=== PATIENT | female | born 1995 | race Caucasian/White ===

== ENCOUNTER 2017-12-14 23:52 | Emergency (ER) | payer SELFPAY ==
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
[2017-12-15 04:45] VITALS: BP 141/94
== END 2017-12-15 00:11 ==
LOC: VM.ED 23:52
DX: S40.212A Abrasion of left shoulder, initial encounter (principal); S90.511A Abrasion, right ankle, initial encounter; F10.129 Alcohol abuse with intoxication, unspecified; V27.4XXA Motorcycle driver injured in collision with fixed or stationary object in traffic accident, initial encounter
CPT/HCPCS: 99283-GF; 99284

== ENCOUNTER 2018-02-06 17:55 | Emergency (ER) | payer SELFPAY ==
[2018-02-06 18:23] VITALS: BP 130/74
[2018-02-06] MEDS ORDERED: Haloperidol Lactate 5 MG/ML SDV IM ONE (18:35)
--- NOTE | 2018-02-06 19:07 | EDM.PDOC ---
ED HPI GENERAL MEDICAL PROBLEM - General Chief Complaint: Behavioral/Psych Stated Complaint: drug induced psychosis Time Seen by Provider: 02/06/18 18:23 Source of Information: Reports: Police History Limitations: Reports: Altered Mental Status - History of Present Illness INITIAL COMMENTS - FREE TEXT/NARRATIVE: Patient's mother called for a welfare check on patient. PD found her wandering in the streets in traffic. They did arrest her and brought her here for evaluation. Meth paraphernalia found in her purse. She is verbally abusive, combative and non cooperative. Verbalizations are non connected and nonsense. Onset: Sudden - Related Data Allergies Allergy/AdvReac Type Severity Reaction Status Date / Time No Known Allergies Allergy Verified 12/15/17 04:36 Home Meds: Home Meds . [No Known Home Meds] 12/01/15 [History] Past Medical History - Past Health History Medical/Surgical History: Denies Medical/Surgical History Social & Family History - Family History Psychiatric: Reports: Schizophrenia Other Psychiatric Family History: Brother has schizophrenia - Tobacco Use Smoking Status *Q: Unknown Ever Smoked ED ROS GENERAL - Review of Systems Review Of Systems: Unable To Obtain - Physical Exam Exam: Not Obtained Course - Vital Signs Last Recorded V/S: Last Vital Signs Temp 37.6 C 02/06/18 17:55 Pulse 138 H 02/06/18 17:55 Resp 20 02/06/18 17:55 BP 130/74 02/06/18 17:55 Pulse Ox 98 02/06/18 17:55 - Orders/Labs/Meds Meds: Medications Discontinued Medications Generic Name Dose Route Start Last Admin Trade Name Santa PRN Reason Stop Dose Admin Chlorpromazine HCl 50 mg 02/06/18 18:34 02/06/18 18:08 Thorazine IM 02/06/18 18:35 50 mg ONETIME ONE Administration Haloperidol Lactate 2.5 mg 02/06/18 18:35 02/06/18 18:49 Haldol IM 02/06/18 18:36 2.5 mg STAT ONE Administration - Re-Assessments/Exams Free Text/Narrative Re-Assessment/Exam: 02/06/18 19:06 50 mg of thorazine given, as well as 2.5 mg of haldol to try to calm her. These were very minimally effective and she is still combative, yelling, and uncooperative. Departure - Departure Time of Disposition: 19:04 Disposition: DC/Tfer to Psych Hosp/Unit 65 Condition: Fair Clinical Impression: Methamphetamine intoxication, Psychosis - Discharge Information *PRESCRIPTION DRUG MONITORING PROGRAM REVIEWED*: Not Applicable *COPY OF PRESCRIPTION DRUG MONITORING REPORT IN PATIENT STARR: Not Applicable Referrals: PCP,Unknown [Primary Care Provider] - ED Communication - Discussed Case With (1) Discussed Case With (1): Other ([facility] screener Erlinda was contacted and we were given the permission for emergency hold and transfer to the [facility] treatment.) - Problem List & Annotations (1) Acute psychosis SNOMED Code(s): 62636320, 92820601 Code(s): F23 - BRIEF PSYCHOTIC DISORDER Status: Acute Priority: High Current Visit: No Onset Date: ~06/05/17 (2) Methamphetamine intoxication SNOMED Code(s): 91693570571758950 Code(s): F15.929 - OTHER STIMULANT USE, UNSP WITH INTOXICATION, UNSPECIFIED Status: Acute Current Visit: Yes
== END 2018-02-06 19:05 ==
LOC: VM.ED 17:55
DX: F15.129 Other stimulant abuse with intoxication, unspecified (principal); F29 Unspecified psychosis not due to a substance or known physiological condition
CPT/HCPCS: 96372; 99283-GF; 99285; J1630; J3230

== ENCOUNTER 2019-07-10 03:05 | Emergency (ER) | payer MEDICAID, OTHER ==
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
[2019-07-10 03:58] VITALS: BP 131/88; PULSE 120
== END 2019-07-10 03:45 | disposition home or self-care (01) ==
LOC: VM.ED 03:05
DX: Z02.89 Encounter for other administrative examinations (principal)
CPT/HCPCS: 99283; 99283-GF

== ENCOUNTER 2019-10-17 11:18 | Emergency (ER) | payer MEDICAID ==
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
[2019-10-17] MEDS ORDERED: LORazepam 1 MG Tab PO ONE ×2 (12:18→12:57)
[2019-10-17 12:23] LABS: CHLORIDE,CL 99 mmol/L (98-107); SODIUM,NA 140 mmol/L (136-145)
[2019-10-17 12:28] LABS: ANION GAP 18.6 mmol/L (10-20)
[2019-10-17 12:36] LABS: ACETAMINOPHEN 0 ug/ml (10-30)
[2019-10-17 12:39] VITALS: BP 142/88; PULSE 147
== END 2019-10-17 13:00 ==
LOC: VM.ED 11:18
DX: F23 Brief psychotic disorder (principal)
CPT/HCPCS: 36415; 80053; 80307; 83735; 85025; 99283-GF; 99285-25; A9270-GY

== ENCOUNTER 2019-11-13 15:58 | Observation (INO) | payer SELFPAY ==
[2019-11-13] MEDS ORDERED: Ketorolac 30 MG/ML SDV IVPUSH ONE (17:19)
[2019-11-13] MEDS ORDERED: Sodium Chloride 0.9% 1,000 ML IV ONE (17:20)
--- NOTE | 2019-11-13 17:21 | EDM.PDOC ---
ED HPI GENERAL MEDICAL PROBLEM - General Chief Complaint: ENT Problem Stated Complaint: SOB Time Seen by Provider: 11/13/19 16:35 Source of Information: Reports: Patient History Limitations: Reports: No Limitations - History of Present Illness Duration: Day(s): Quality: Reports: Burning Severity: Moderate Associated Symptoms: Reports: Fever/Chills, Shortness of Breath. Denies: Confusion, Chest Pain, Cough, cough w sputum, Nausea/Vomiting Throat Pain Score (Numeric/FACES): 8 - Related Data Allergies Allergy/AdvReac Type Severity Reaction Status Date / Time No Known Allergies Allergy Verified 10/17/19 12:44 Home Meds: Home Meds . [No Known Home Meds] 12/01/15 [History] Past Medical History - Past Health History Medical/Surgical History: Denies Medical/Surgical History Psychiatric History: Reports: Addiction Other Psychiatric History: Meth use Social & Family History - Family History Psychiatric: Reports: Schizophrenia Other Psychiatric Family History: Brother has schizophrenia - Tobacco Use Smoking Status *Q: Current Every Day Smoker Years of Tobacco use: 2 Packs/Tins Daily: 0.2 - Recreational Drug Use Recreational Drug Use: No ED ROS ENT - Review of Systems Review Of Systems: See Below Constitutional: Reports: Fever. Denies: Chills, Malaise, Weakness, Fatigue HEENT: Reports: No Symptoms, Throat Pain, Throat Swelling Respiratory: Reports: No Symptoms Cardiovascular: Reports: No Symptoms Endocrine: Reports: No Symptoms GI/Abdominal: Reports: No Symptoms : Reports: No Symptoms Musculoskeletal: Reports: No Symptoms Skin: Reports: No Symptoms Neurological: Reports: No Symptoms Psychiatric: Reports: No Symptoms Hematologic/Lymphatic: Reports: No Symptoms Immunologic: Reports: No Symptoms ED EXAM, ENT - Physical Exam Exam: See Below Exam Limited By: No Limitations General Appearance: Alert, WD/WN, No Apparent Distress Eye Exam: Bilateral Eye: EOMI, PERRL Ears: Normal External Exam, Normal Canal, Hearing Grossly Normal Nose: Normal Inspection, Normal Mucousa, No Blood Mouth/Throat: Normal Gums, Normal Lips, Normal Teeth, Tonsillar Erythema, Tonsillar Exudates, Tonsillar Swelling, Uvular Edema, Other (Patient has huge bilateral cryptic tonsils with punched out ulcerations and whitish plaques she does have a patent airway and has normal phonation she is able to swallow her own saliva with no issues uvula is midline but edematous). No: Normal Inspection, Normal Oropharynx, Tongue Swelling, Trismus Head: Atraumatic, Normocephalic Neck: Normal Inspection, Supple, Non-Tender, Full Range of Motion. No: Limited Range of Motion, Lymphadenopathy (L), Lymphadenopathy (R) Respiratory/Chest: No Respiratory Distress, Lungs Clear, Normal Breath Sounds, No Accessory Muscle Use, Chest Non-Tender Cardiovascular: Normal Peripheral Pulses, Regular Rate, Rhythm GI/Abdominal: Normal Bowel Sounds, Soft, Non-Tender, No Organomegaly Extremities: Normal Inspection, Normal Range of Motion, Non-Tender Neurological: Alert, Oriented, CN II-XII Intact, Normal Cognition, Normal Gait, No Motor/Sensory Deficits Psychiatric: Normal Affect, Normal Mood Skin: Warm, Dry, Intact, Normal Color, No Rash Lymphatic: No Adenopathy Comments: Patient has negative trismus no signs or symptoms of Ludwigs angina Course - Vital Signs Text/Narrative:: Consulted with ear nose throat in [place] with Dr. Kirk advised to admit the patient hydrate give IV Unasyn and IV steroids titrate for pain control he is happy to consult if need be as outpatient or if needs to be transferred go to hospitalist service Spoke with Dr. Faiza Aleman she will accept the patient Last Recorded V/S: Last Vital Signs Temp 37.5 C 11/13/19 16:10 Pulse 126 H 11/13/19 16:10 Resp 16 11/13/19 16:10 BP 138/89 11/13/19 16:10 Pulse Ox 98 11/13/19 16:10 - Orders/Labs/Meds Orders: Active Orders 24 hr Category Date Time Status CBC WITH AUTO DIFF [HEME] Stat Lab 11/13/19 16:59 Ordered CULTURE THROAT [RM] Stat Lab 11/13/19 16:59 Ordered STREP SCRN A RAPID W CULT CONF [RM] Urgent Lab 11/13/19 16:07 Results Labs: Laboratory Tests 11/13/19 Range/Units 16:07 SARS-CoV-2 RNA (RT-PCR) Negative (NEGATIVE) Departure - Departure Time of Disposition: 17:25 Disposition: Refer to Observation Condition: Good Clinical Impression: Pharyngitis, Acute gangrenous tonsillitis - Discharge Information Sepsis Event Note - Evaluation Sepsis Screening Result: Possible Sepsis Risk - Focused Exam Vital Signs: Vital Signs Temp Pulse Resp BP Pulse Ox 11/13/19 16:10 37.5 C 126 H 16 138/89 98 Date Exam was Performed: 11/13/19 Time Exam was Performed: 17:16 - Problem List & Annotations (1) Acute gangrenous tonsillitis SNOMED Code(s): 515599626 Code(s): J03.90 - ACUTE TONSILLITIS, UNSPECIFIED Status: Acute Current Visit: Yes (2) Pharyngitis SNOMED Code(s): 430401312 Code(s): J02.9 - ACUTE PHARYNGITIS, UNSPECIFIED Status: Acute Current Visit: Yes - My Orders Last 24 Hours: My Active Orders 11/13/19 16:07 STREP SCRN A RAPID W CULT CONF [RM] Urgent 11/13/19 16:59 CBC WITH AUTO DIFF [HEME] Stat CULTURE THROAT [RM] Stat - Assessment/Plan Last 24 Hours: My Active Orders 11/13/19 16:07 STREP SCRN A RAPID W CULT CONF [RM] Urgent 11/13/19 16:59 CBC WITH AUTO DIFF [HEME] Stat CULTURE THROAT [RM] Stat
[2019-11-13] MEDS: Ampicillin/Sulbactam Na 3 GM Vial IVPUSH SCH ×2 (17:44→23:48)
[2019-11-13] MEDS: Dexamethasone 4 MG/ML SDV IVPUSH SCH (17:44)
[2019-11-13] MEDS: Hydrocortisone Sodium Succinate 250 MG/2 ML SDV IV SCH (17:45)
[2019-11-13] MEDS ORDERED: Morphine 2 MG/ML Syringe IVPUSH PRN (18:44)
[2019-11-13] MEDS ORDERED: Ondansetron 4 MG/2 ML SDV IV PRN (18:44)
[2019-11-13] MEDS ORDERED: Acetaminophen Susp 160 MG/5 ML 120 ML Bottle PO PRN (18:47)
[2019-11-13] MEDS ORDERED: Ketorolac 30 MG/ML SDV IVPUSH PRN (18:47)
[2019-11-13] MEDS ORDERED: Sodium Chloride 0.9% 1,000 ML IV SCH (19:00)
--- NOTE | 2019-11-14 00:43 | HP ---
CHIEF COMPLAINT: Throat pain. HISTORY OF PRESENT ILLNESS: This 24-year-old who has had sore throat for 3 days, trouble swallowing, and some shortness of breath. Symptoms were not improving, although the breathing is not getting worse. Therefore, she came into the emergency room for evaluation. She had not felt any fevers. She has had trouble with strep throat in the past, but none recently. She has never had any surgeries on the tonsils. She has not been nauseated or having any vomiting. She is a smoker. Denies any current alcohol use. Has had some admissions in the past for care home clearance. Last EtOH was normal, but she did have some methamphetamines in the drug screen a few years ago. Otherwise, no medical problems. Takes no medications. ALLERGIES: None. MEDICATION LIST: None. PAST MEDICAL HISTORY: Has a history of addiction. Methamphetamine use is listed. PAST SURGICAL HISTORY: No surgeries. FAMILY HISTORY: A brother has schizophrenia attack. SOCIAL HISTORY: Tobacco use. Current everyday smoker. Denied alcohol. She is currently not working. REVIEW OF SYSTEMS: General: No reports of weight changes. She denied fever to me, but did report it to the ER staff. No chills. No fatigue. HEENT: Throat pain, trouble swallowing. Respiratory: She has had some shortness of breath with her breathing, but does not feel like it is getting worse. No cough. Cardiac: A little bit of chest discomfort. No history of heart disease. Endocrine: No diabetes. GI: No abdominal pain, nausea, vomiting, or diarrhea. : She is on her period currently per her report. She denies that she could be . Musculoskeletal: No new back aches or joint pains. Neurologic and Psychiatric: No confusion. No anxiety or depression. Hematologic: No frequent infections. No bleeding trouble. Otherwise, all systems reviewed and found to be negative. PHYSICAL EXAMINATION: Vital Signs: Weight 63.5 kg, temp 99.5, pulse 126, blood pressure 138/89, respiratory rate 16, and O2 of 98% on room air. General: She is in no acute distress. Heart: Regular rate and rhythm. S1, S2 without murmur. Lungs: Lung sounds are clear to auscultation bilaterally without crackles or wheezes. Extremities: Warm and dry. No edema. Chest Wall: No tenderness. Mental Status: Alert and orientated x3. HEENT: Does show her to have enlarged tonsils with abscess noted on the left tonsil and just a small amount of lymphadenopathy on the left side. Her airway appears to be patent. She is speaking and breathing normally. LABORATORY WORK: Done in the ER did show white count of 18,000, hemoglobin 13.4. SARS testing negative. Platelets 292. ASSESSMENT AND PLAN: Tonsillar abscess. Initial strep test negative. She will be set up for a culture. Given her tachycardia and white count, she will be treated with intravenous Unasyn. Discussion was had between the ER provider and ENT. We will hydrate her and give her intravenous antibiotics. If she improves, she will hopefully go home tomorrow on oral agents. If she worsens, we will do a neck CT and transfer her to [place]. Otherwise, the patient had a pain level of 7. She got Toradol and steroids, Solu-Medrol in the ER, and her symptoms improved down to 4. She is feeling much better. Deep venous thrombosis prophylaxis not indicated. The patient is a young, healthy female, and likely will go home tomorrow. She will be on a regular diet if tolerated. Otherwise, clear liquids. She is a code level 1. MKA: 11/13/2019 18:58:01 MODL: 11/14/2019 00:21:54 /[id number]
[2019-11-14] MEDS: Dexamethasone 4 MG/ML SDV IVPUSH SCH ×2 (00:59→09:20)
[2019-11-14] MEDS: Ampicillin/Sulbactam Na 3 GM Vial IVPUSH SCH (05:40)
[2019-11-14] MEDS: Hydrocortisone Sodium Succinate 250 MG/2 ML SDV IV SCH (05:40)
[2019-11-14 07:28] LABS: CHLORIDE,CL 105 mmol/L (98-107); SODIUM,NA 141 mmol/L (136-145)
[2019-11-14 07:50] LABS: ANION GAP 14.9 mmol/L (10-20)
[2019-11-14] MEDS ORDERED: Amoxicillin/Clavulanate K 875-125 MG Tab PO ONE (08:24)
[2019-11-14 10:03] VITALS: BP 115/56; PULSE 88
--- NOTE | 2019-11-15 08:25 | DISCH ---
PRIMARY DISCHARGE DIAGNOSES: 1. Strep throat with concern for gangrenous left tonsil, rapidly improved after IV steroids, Toradol, and IV Unasyn. 2. History of polysubstance abuse with previous emergency room visits and an admission last to Psych in 2017 for meth and cocaine. 3. Smoking. 4. Sepsis due to strep throat. REASON FOR ADMISSION: On the date of admission, this 24-year-old had a sore throat for 3 days, trouble swallowing, and shortness of breath, but no cough. Came into the ER, was evaluated. White count was 18,000. Initially, she was having chills, but no high fevers, just 99.5. She was given some IV fluid. She was able to eat and drink okay. She was admitted for observation and was feeling better by the next morning and was able to be discharged on Augmentin 875 b.i.d. for another 9 days. Her white count did improve to 15.2. Her CRP was 21.6. Urine negative. COVID testing negative. Initial strep screen was negative, but culture was growing beta-hemolytic strep. The patient required no extra pain control, was instructed to use Tylenol and ibuprofen at home for pain control, and follow up in the clinic with Dr. Aleman on 11/27/2019. She has had strep throat before. We will refer her to ENT at that time if needed. DISCHARGE EXAMINATION: Vital Signs: Her temperature was 97.5, pulse 77, blood pressure 105/62, respiratory rate 18, and O2 of 100% on room air. General: She is in no acute distress. Heart: Regular rate and rhythm. S1, S2 without murmur. Lungs: Lung sounds are clear to auscultation bilaterally without crackles or wheezes. Abdomen: Nondistended, soft, nontender. Extremities: Warm and dry. No edema. Mental Status: Alert and orientated x3. Neck: Examined. There were just trace amounts of lymphadenopathy on the left. Just mild tenderness. Her tonsils were not any further enlarged or more gangrenous than they were on exam yesterday. Chest: She no longer had any chest discomfort. MKA: 11/14/2019 14:34:47 MODL: 11/14/2019 21:46:28 /[id number]
== END 2019-11-14 10:55 | disposition home or self-care (01) ==
LOC: VM.ED 15:58 → VM.MS 18:06 → VM.ED 18:08
PROVIDERS: ADMIT Internal Medicine; ATTEND Internal Medicine
DX: A40.9 Streptococcal sepsis, unspecified (principal); J36 Peritonsillar abscess; F15.11 Other stimulant abuse, in remission; Z20.828 Contact with and (suspected) exposure to other viral communicable diseases; F14.10 Cocaine abuse, uncomplicated; F17.210 Nicotine dependence, cigarettes, uncomplicated
CPT/HCPCS: 36415; 80048; 81025; 85025; 86140; 87070; 87077; 87081; 87186; 87635; 87880; 96374; 96375; 99284; 99285; A9270; J0295; J1100; J1720; J1885; J7030; U0002

== ENCOUNTER 2021-12-12 20:02 | Emergency (ER) | payer MEDICARE, OTHER ==
[2021-12-12] MEDS ORDERED: Lidocaine 2% 5 ML SDV INJECT ONE (20:16)
[2021-12-12 20:32] VITALS: BP 133/90; PULSE 93
[2021-12-12] MEDS ORDERED: Diphtheria,Pertussis(Acell),Tetanus Vaccine 0.5 ML Syringe IM ONE (20:42)
== END 2021-12-12 21:02 ==
LOC: VM.ED 20:02
DX: S91.114A Laceration without foreign body of right lesser toe(s) without damage to nail, initial encounter (principal); Z23 Encounter for immunization; W26.0XXA Contact with knife, initial encounter
CPT/HCPCS: 12001; 90471; 90715; 99282-25

== ENCOUNTER 2023-04-08 08:42 | Emergency (ER) | payer SELFPAY ==
[2023-04-08 08:54] VITALS: BP 131/80; PULSE 98
[2023-04-08 09:16] LABS: APPEARANCE,URINE CLOUDY (CLEAR); BILIRUBIN,URINE NEGATIVE (NEGATIVE); COLOR,URINE YELLOW (YELLOW); GLUCOSE,URINE NEGATIVE (NEGATIVE); KETONES,URINE NEGATIVE (NEGATIVE); LEUKOCYTE ESTERASE,URINE MODERATE (NEGATIVE); NITRITE,URINE POSITIVE (NEGATIVE); OCCULT BLOOD,URINE MODERATE (NEGATIVE); PROTEIN,URINE >=300 mg/dL (NEGATIVE)
[2023-04-08 09:22] LABS: BASOPHILS PERCENT AUTO 0.3 % (0.2-1.2); EOSINOPHILS ABSOLUTE AUTO 0.1 x10^3/uL (0.0-0.5); EOSINOPHILS PERCENT AUTO 0.7 % (0.0-4.0); HEMATOCRIT 38.8 % (33.0-47.0); HEMOGLOBIN 13.2 g/dL (12.0-16.0); IMMATURE GRAN ABSOLUTE AUTO 0.01 x10^3/uL (0.00-0.07); LYMPHOCYTES ABSOLUTE AUTO 0.8 x10^3/uL (1.0-4.8); LYMPHOCYTES PERCENT AUTO 6.9 % (25.0-50.0); MEAN CORPUSCULAR HEMOGLOBIN 30.9 pg (26.0-32.0); MEAN CORPUSCULAR VOLUME 90.9 fL (78.0-93.0); MONOCYTES ABSOLUTE AUTO 0.8 x10^3/uL (0.0-0.8); MONOCYTES PERCENT AUTO 7.4 % (2.0-11.0); NEUTROPHILS ABSOLUTE AUTO 9.3 x10^3/uL (1.8-7.7); NEUTROPHILS PERCENT AUTO 84.6 % (50.0-80.0); PLATELET COUNT,PLT 251 x10^3/uL (130-400); RED BLOOD CELL COUNT 4.27 x10^6/uL (4.00-5.50)
[2023-04-08 09:24] LABS: BACTERIA,URINE MODERATE /HPF (NOT SEEN); MUCUS,URINE OCCASIONAL /LPF (NOT SEEN); SQUAMOUS EPITHELIAL CELLS,UR OCCASIONAL /HPF (NOT SEEN); WBC,URINE 75-100 /HPF (NOT SEEN)
[2023-04-08 09:45] LABS: LACTIC ACID 0.9 mmol/L (0.4-2.0)
[2023-04-08 09:52] LABS: A/G RATIO 0.88; ALANINE AMINOTRANSFERASE,ALT 17 U/L (14-59); ALBUMIN 3.7 g/dL (3.4-5.0); ALKALINE PHOSPHATASE 81 U/L (46-116); ANION GAP 14.8 mmol/L (5-15); ASPARTATE AMNIOTRANSFERASE,AST 11 U/L (15-37); BILIRUBIN TOTAL 0.6 mg/dL (0.2-1.0); BLOOD UREA NITROGEN,BUN 5 mg/dL (7-18); C-REACTIVE PROTEIN 4.14 mg/dL (<=0.30); CALCIUM 9.2 mg/dL (8.5-10.1); CARBON DIOXIDE,CO2 28 mmol/L (21-32); CHLORIDE,CL 98 mmol/L (98-107); CREATININE 0.8 mg/dL (0.55-1.02); ESTIMATED GFR 103 mL/min (>=60); GLUCOSE RANDOM 113 mg/dL (70-99); POTASSIUM,K 3.8 mmol/L (3.5-5.1); PROTEIN TOTAL,TP 7.9 g/dL (6.4-8.2); SODIUM,NA 137 mmol/L (136-145)
== END 2023-04-08 10:00 | disposition home or self-care (01) ==
LOC: VM.ED 08:42
DX: N39.0 Urinary tract infection, site not specified (principal); F17.210 Nicotine dependence, cigarettes, uncomplicated
CPT/HCPCS: 36415; 80053; 81001; 81025; 83605; 85025; 86140; 87086; 87088; 87186; 99284

== ENCOUNTER 2023-10-10 01:40 | Emergency (ER) | payer SELFPAY ==
[2023-10-10 01:56] VITALS: BP 139/62; PULSE 101
== END 2023-10-10 02:10 | disposition home or self-care (01) ==
LOC: VM.ED 01:40
DX: Z13.30 Encounter for screening examination for mental health and behavioral disorders, unspecified (principal); F17.210 Nicotine dependence, cigarettes, uncomplicated
CPT/HCPCS: 99283